=== PATIENT | male | born 1985 | race Two or more races ===

== ENCOUNTER 2021-10-29 07:32 | Emergency (ER) | payer OTHER ==
[~2021-10-29] VITALS: Ht 172.7 cm; Wt 99.3 kg
[2021-10-29] MEDS ORDERED: PROZAC10 MG (07:42)
== END 2021-10-29 10:31 | disposition home or self-care (01) ==
LOC: ER 07:32
DX: F10.929 Alcohol use, unspecified with intoxication, unspecified (principal); E11.9 Type 2 diabetes mellitus without complications; Z88.0 Allergy status to penicillin; Z88.2 Allergy status to sulfonamides